=== PATIENT | female | born 1965 | race Hispanic/Latino ===

== ENCOUNTER 2016-11-25 16:31 | Emergency (ER) | payer OTHER ==
[~2016-11-25] VITALS: Ht 167.6 cm; Wt 86.5 kg
[2016-11-25 17:45] LABS: CHLORIDE 106 mEq/L (99-109); POTASSIUM 3.6 mEq/L (3.7-5.4); SODIUM 136 mEq/L (136-147)
[2016-11-25 17:47] LABS: GLUCOSE 115 mg/dL (70-99)
[2016-11-25 17:49] LABS: ANION GAP 9 MEQ/L (2-14); TOTAL BILIRUBIN 0.6 mg/dL (0.0-1.0)
[2016-11-25 17:51] LABS: ALKALINE PHOSPHATASE 67 IU/L (3-129)
[2016-11-25 17:52] LABS: GFR ESTIMATE (CALCULATED) > 59 mL/min/; UREA NITROGEN (BUN) 9 mg/dL (9-23)
[2016-11-25 17:53] LABS: HEMATOCRIT 28.4 % (36.0-46.0); MCH 15.5 PG (29.0-34.0); MCHC 25.7 G/DL (30.0-36.0); MCV 60.4 FL (83-99); MEAN PLAT.VOLUME 9.7 uM^3 (9.5-12.4); PLATELET COUNT 453 K/uL (156-360); RBC DIS.WIDTH-CV 19.9 % (11.8-14.6); RBC DIS.WIDTH-SD 41.4 % (39-53); WHITE BLOOD COUNT 11.4 K/uL (4.1-10.2)
[2016-11-25 17:54] LABS: LIPASE 13 U/L (1.0-51.0)
[2016-11-26 03:37] VITALS: BP 131/77
[2016-11-26] MEDS ORDERED: PERCOCET 5/31 TABLET PO ×2 (04:27→06:06)
[2016-11-26 04:47] VITALS: BP 139/76
[2016-11-26 06:15] VITALS: BP 144/77
== END 2016-11-26 06:35 | disposition home or self-care (01) ==
LOC: EME 16:31
PROC: 30233N1 Transfusion of Nonautologous Red Blood Cells into Peripheral Vein, Percutaneous Approach (ICD-10-PCS; principal; 2016-11-26)
DX: D25.9 Leiomyoma of uterus, unspecified (principal); D64.9 Anemia, unspecified; Z90.49 Acquired absence of other specified parts of digestive tract
CPT/HCPCS: 74177; 80053; 81003; 83690; 85027; 86900; 86901; 86920; 99281; 99285; J1885; J2270; J7030; P9016